=== PATIENT | female | born 1990 | race Two or more races ===

== ENCOUNTER 2016-11-14 10:45 | Emergency (ER) | payer MEDICAID ==
[~2016-11-14] VITALS: Ht 144.8 cm; Wt 72.6 kg
[~2016-11-14 10:45] MED LIST: ACET500T68 PO; CLOT12CR2 TP; HYDR-971 PO; LIDO30CR TP; ONDA4TAB10 SL; PREN1TAB58 PO
[2016-11-14] MEDS ORDERED: IV NORMAL SALINE 1,000ML 1,000 ML IV SCH (10:57)
--- NOTE | 2016-11-14 11:07 | PHYS DOC ---
General Chief Complaint: allergic reaction Stated Complaint: allergic reaction Time Seen by MD: 10:51 Source: patient Exam Limitations: no limitations Problems: History of Present Illness Initial Comments Patient is a 26-year-old female who comes to the emergency department complaining of an allergic reaction. Patient states that she tried a new body lotion yesterday and developed an itchy rash. She thought symptoms would resolve on their own however today her rash is worse and she is now stating she feels slightly hoarse. She denies cough or dyspnea on exertion or actual shortness of breath and has not noted any facial or throat swelling. No pre-arrival treatment she is normally healthy and denies possibility of . Timing/Duration: 24 hours, getting worse Severity: moderate Modifying Factors: improves with cold therapy Associated Symptoms: rash, other Allergies: Coded Allergies: No Known Drug Allergies (Unverified , 11/14/16) Past Medical History Medical History: no pertinent history Surgical History: noncontributory Social History Smoker: non-smoker Alcohol: none Drugs: none Review of Systems Constitutional: denies chills, denies diaphoresis, denies fever EENTM: see HPI, denies eye pain, denies blurred vision, denies ear pain, denies nose pain Respiratory: see HPI Cardiovascular: denies chest pain, denies palpitations, denies syncope Gastrointestinal: denies abdominal pain, denies diarrhea, denies nausea, denies vomiting Genitourinary: denies dysuria, denies frequency, denies hematuria Musculoskeletal: denies back pain, denies joint swelling, denies neck pain Skin: see HPI Psychiatric/Neurological: denies headache, denies numbness, denies paresthesia , denies weakness Physical Exam General Appearance: no apparent distress Eyes: bilateral eye normal inspection, bilateral eye PERRL, bilateral eye EOMI Ear, Nose, Throat: hearing grossly normal, normal ENT inspection, normal pharynx, other (birthmark/port wine stain right cheek) Neck: non-tender, supple Respiratory: normal breath sounds, no respiratory distress Cardiovascular: normal peripheral pulses, regular rate, rhythm Back: no CVA tenderness, no vertebral tenderness Extremities: normal range of motion, non-tender 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 1206: I rechecked the patient she states she is feeling much better after medication. She is somewhat tired from the Benadryl but no longer itching in her respiratory status has returned to baseline normal. She feels she is ready for discharge I discussed the discharge plan including prescription for prednisone as well as [id number] Benadryl and Pepcid. Patient expressed agreement and understanding of the treatment plan, she will discontinue the new product and follow-up with her doctor for allergy testing. Departure Time of Disposition: 12:07 Disposition: HOME, SELF-CARE Diagnosis: allergic reaction Condition: IMPROVED Patient Instructions: Allergy Skin Testing Additional Instructions: Rest, no strenuous activity today. Remain in a cool temperature environment, exertion or hot temperatures well cause your symptoms to worsen. Discontinue the new product you feel is responsible for this rash. [id number] Benadryl and Pepcid dosing per package instructions, take for the next 5 days while taking prednisone. Prescription: Prednisone Follow-up with your doctor Friday for recheck and to discuss skin testing for allergies. Return to the ED with new or changing symptoms. VIOLET SINGLETON DO Nov 14, 2016 11:07
[2016-11-14 11:30] VITALS: BP 125/70
[2016-11-14] MEDS ORDERED: diphenhydrAMINE 50 MG/ML VIAL IV ONE (11:30)
[2016-11-14] MEDS ORDERED: methylPREDNISolone SOD SUCC PF 125 MG/2 ML VIAL. IV ONE (11:30)
[2016-11-14] MEDS ORDERED: FAMOTIDINE 20 MG/2 ML VIAL IVP ONE (11:30)
== END 2016-11-14 12:17 | disposition home or self-care (01) ==
LOC: ER 10:45 → MERGE 10:45 → ER 12:17
DX: T78.49XA Other allergy, initial encounter (principal); X58.XXXA Exposure to other specified factors, initial encounter
CPT/HCPCS: 96361; 96374; 96375; 99285; J1200; J2930; S0028; J7030

== ENCOUNTER 2017-05-01 01:00 | Emergency (ER) | payer SELFPAY ==
[~2017-05-01] VITALS: Ht 127 cm; Wt 74.2 kg
[2017-05-01 01:42] LABS: BASO # 0.1 x10^3/uL (0.0-0.2); BASO % 1 % (0-3); EOS # 0.4 x10^3/uL (0.0-0.7); EOS % 3 % (0-3); HEMOGLOBIN 11.4 g/dL (12.0-15.5); LYMPH # 4.9 x10^3/uL (1.0-4.8); LYMPH % 34 % (24-48); MEAN CORPUSCULAR HEMOGLOBIN 26 pg (25-35); MEAN CORPUSCULAR HGB CONC 33 g/dL (31-37); MEAN CORPUSCULAR VOLUME 79 fL (79-100); MONO # 1.2 x10^3/uL (0.0-1.1); MONO % 9 % (0-9); NEUT # 7.7 x10^3uL (1.8-7.7); NEUT % 54 % (31-73); PLATELET COUNT 537 x10^3/uL (140-400); RED BLOOD COUNT 4.32 x10^6/uL (3.50-5.40); RED CELL DISTRIBUTION WIDTH 15.9 % (11.5-14.5); WHITE BLOOD COUNT 14.3 x10^3/uL (4.0-11.0)
[2017-05-01 01:47] LABS: CLARITY,URINE CLEAR; COLOR,URINE YELLOW
[2017-05-01 01:48] LABS: BACTERIA,URINE FEW /HPF (0-FEW); BILIRUBIN,URINE NEG (NEG); GLUCOSE,URINE NEG (NEG); NITRITE,URINE NEG (NEG); RBC,URINE OCC /HPF (0-2); SQUAMOUS EPITHELIAL CELL,UR MOD /LPF; UROBILINOGEN,URINE 0.2 mg/dL (0.2 mg/dL)
[2017-05-01 01:55] LABS: ALBUMIN 3.2 g/dL (3.4-5.0); ALBUMIN/GLOBULIN RATIO 0.8 (1.0-1.7); CALCIUM 8.5 mg/dL (8.5-10.1); CREATININE 0.8 mg/dL (0.6-1.0); DIRECT BILIRUBIN 0.1 mg/dL (0.0-0.2); GFR 88.1; POTASSIUM 3.2 mmol/L (3.5-5.1); TOTAL BILIRUBIN 0.2 mg/dL (0.2-1.0)
[2017-05-01] MEDS ORDERED: ONDANSETRON PF 4 MG/2 ML VIAL. IV ONE (02:15)
[2017-05-01] MEDS ORDERED: IOHEXOL 300 MG/ML 75 ML VIAL. IV ONE (02:30)
[2017-05-01] MEDS ORDERED: CONTRAST GIVEN MC PRN (02:30)
--- NOTE | 2017-05-01 03:08 | RAD ---
CT scan of the abdomen and pelvis with contrast 05/01/2017 CLINICAL HISTORY: Right upper quadrant abdominal pain. TECHNIQUE: After the intravenous administration of 75 cc of Omnipaque 300, contiguous, 5 mm axial sections were obtained through the abdomen and pelvis. One or more of the following individualized dose reduction techniques were utilized for this study: 1. Automated exposure control. 2. Adjustment of the mA and/or kV according to patient size. 3. Use of iterative reconstruction technique. FINDINGS: Images through the lung bases demonstrate minimal dependent subsegmental atelectasis bilaterally. The liver, spleen, pancreas, adrenal glands and kidneys are within normal limits. The abdominal aorta tapers normally. The gallbladder is well-distended. No free fluid or free air is seen within the abdomen. There is no evidence of bowel obstruction. Air and stool is seen throughout the colon. The appendix is well-visualized and is within normal limits. Images through the pelvis demonstrate the urinary bladder distended with urine. No adnexal mass is seen. No free fluid is noted. Minimal S-shaped curvature of the thoracolumbar spine is seen. IMPRESSION: No acute abnormality is seen. Electronically signed by: Zenon bOregon MD (05/01/2017 3:06 AM) [facility]
--- NOTE | 2017-05-01 03:18 | PHYS DOC ---
Past History Past Medical History: Other Past Surgical History: Alcohol Use: None Drug Use: None Adult General Chief Complaint Chief Complaint: ABDOMINAL PAIN HPI HPI Patient is a 26-year-old female presenting to the emergency department for evaluation of upper abdominal pain worse in the right upper quadrant. Symptoms started approximately 4-5 hours prior to arrival and is associated with nonbloody nonbilious emesis. Patient denies any fevers chills diarrhea constipation dysuria hematuria or abnormal bleeding or discharge. She has had a but denies any other abdominal surgeries. She is in no obvious distress with normal vital signs. Review of Systems Review of Systems Constitutional: Denies fever or chills [] Respiratory: Denies cough or shortness of breath [] Cardiovascular: No additional information not addressed in HPI [] GI: + abdominal pain, nausea, vomiting. No bloody stools or diarrhea [] : Denies dysuria or hematuria [] Musculoskeletal: Denies back pain or joint pain [] Neurologic: Denies headache, focal weakness or sensory changes [] All other systems were reviewed and found to be within normal limits, except as documented in this note. Current Medications Current Medications Current Medications Medications (Trade) Dose Ordered Sig/Mino Start Time Stop Time Status Last Admin Dose Admin Fentanyl Citrate (Fentanyl 2ml Vial) 50 mcg 1X ONCE 05/01/17 02:15 05/01/17 02:28 DC 05/01/17 02:18 50 MCG Info (Do NOT chart on this entry -- for MONITORING) 1 each PRN DAILY PRN 05/01/17 02:30 05/03/17 02:29 Iohexol (Omnipaque 300 Mg/ml) 75 ml 1X ONCE 05/01/17 02:30 05/01/17 02:31 DC 05/01/17 02:34 75 ML Ondansetron HCl (Zofran) 8 mg 1X ONCE 05/01/17 02:15 05/01/17 02:28 DC 05/01/17 02:18 8 MG Allergies Allergies Allergies Coded Allergies Type Severity Reaction Last Updated Verified No Known Drug Allergies 05/01/17 No Physical Exam Physical Exam Constitutional: Well developed, well nourished, no acute distress, non-toxic appearance. [] Cardiovascular:Heart rate regular rhythm, no murmur [] Lungs & Thorax: Bilateral breath sounds clear to auscultation [] Abdomen: Bowel sounds normal, soft, positive right upper quadrant tenderness, no rebound or guarding, no masses, no pulsatile masses. [] Skin: Warm, dry, no erythema, no rash. [] Back: No tenderness, no CVA tenderness. [] Extremities: No tenderness, no cyanosis, no clubbing, ROM intact, no edema. [] Neurologic: Alert and oriented X 3, normal motor function, normal sensory function, no focal deficits noted. [] Current Patient Data Vital Signs Vital Signs Date Time Temp Pulse Resp B/P (MAP) Pulse Ox O2 Delivery O2 Flow Rate FiO2 05/01/17 02:18 20 98 Room Air 05/01/17 01:05 98.3 85 Lab Results Laboratory Tests Test 05/01/17 01:15 05/01/17 02:40 White Blood Count 14.3 x10^3/uL (4.0-11.0) H Red Blood Count 4.32 x10^6/uL (3.50-5.40) Hemoglobin 11.4 g/dL (12.0-15.5) L Hematocrit 34.0 % (36.0-47.0) L Mean Corpuscular Volume 79 fL (79-100) Mean Corpuscular Hemoglobin 26 pg (25-35) Mean Corpuscular Hemoglobin Concent 33 g/dL (31-37) Red Cell Distribution Width 15.9 % (11.5-14.5) H Platelet Count 537 x10^3/uL (140-400) H Neutrophils (%) (Auto) 54 % (31-73) Lymphocytes (%) (Auto) 34 % (24-48) Monocytes (%) (Auto) 9 % (0-9) Eosinophils (%) (Auto) 3 % (0-3) Basophils (%) (Auto) 1 % (0-3) Neutrophils # (Auto) 7.7 x10^3uL (1.8-7.7) Lymphocytes # (Auto) 4.9 x10^3/uL (1.0-4.8) H Monocytes # (Auto) 1.2 x10^3/uL (0.0-1.1) H Eosinophils # (Auto) 0.4 x10^3/uL (0.0-0.7) Basophils # (Auto) 0.1 x10^3/uL (0.0-0.2) Urine Collection Type Unknown Urine Color Yellow Urine Clarity Clear Urine pH 7.0 Urine Specific [place] 1.020 Urine Protein Neg (NEG-TRACE) Urine Glucose (UA) Neg mg/dL (NEG) Urine Ketones (Stick) Trace mg/dL (NEG) Urine Blood Large (NEG) Urine Nitrite Neg (NEG) Urine Bilirubin Neg (NEG) Urine Urobilinogen Dipstick 0.2 mg/dL (0.2 mg/dL) Urine Leukocyte Esterase Neg (NEG) Urine RBC Occ /HPF (0-2) Urine WBC 1-4 /HPF (0-4) Urine Squamous Epithelial Cells Mod /LPF Urine Bacteria Few /HPF (0-FEW) Sodium Level 140 mmol/L (136-145) Potassium Level 3.2 mmol/L (3.5-5.1) L Chloride Level 105 mmol/L (98-107) Carbon Dioxide Level 22 mmol/L (21-32) Anion Gap 13 (6-14) Blood Urea Nitrogen 11 mg/dL (7-20) Creatinine 0.8 mg/dL (0.6-1.0) Estimated GFR (Cockcroft-Gault) 88.1 BUN/Creatinine Ratio 14 (6-20) Glucose Level 140 mg/dL (70-99) H Calcium Level 8.5 mg/dL (8.5-10.1) Total Bilirubin 0.2 mg/dL (0.2-1.0) Direct Bilirubin 0.1 mg/dL (0.0-0.2) Aspartate Amino Transferase (AST) 14 U/L (15-37) L Alanine Aminotransferase (ALT) 28 U/L (14-59) Alkaline Phosphatase 85 U/L (46-116) Total Protein 7.0 g/dL (6.4-8.2) Albumin 3.2 g/dL (3.4-5.0) L Albumin/Globulin Ratio 0.8 (1.0-1.7) L Lipase 107 U/L (73-393) POC Urine HCG, Qualitative hcg negative (Negative) EKG EKG [] Radiology/Procedures Radiology/Procedures CT scan of the abdomen and pelvis with contrast 05/01/2017 CLINICAL HISTORY: Right upper quadrant abdominal pain. TECHNIQUE: After the intravenous administration of 75 cc of Omnipaque 300, contiguous, 5 mm axial sections were obtained through the abdomen and pelvis. One or more of the following individualized dose reduction techniques were utilized for this study: 1. Automated exposure control. 2. Adjustment of the mA and/or kV according to patient size. 3. Use of iterative reconstruction technique. FINDINGS: Images through the lung bases demonstrate minimal dependent subsegmental atelectasis bilaterally. The liver, spleen, pancreas, adrenal glands and kidneys are within normal limits. The abdominal aorta tapers normally. The gallbladder is well-distended. No free fluid or free air is seen within the abdomen. There is no evidence of bowel obstruction. Air and stool is seen throughout the colon. The appendix is well-visualized and is within normal limits. Images through the pelvis demonstrate the urinary bladder distended with urine. No adnexal mass is seen. No free fluid is noted. Minimal S-shaped curvature of the thoracolumbar spine is seen. IMPRESSION: No acute abnormality is seen. Electronically signed by: Zenon Perez MD (05/01/2017 3:06 AM) [facility] DICTATED AND SIGNED BY: ZENON PEREZ MD DATE: 05/01/17300 Course & Med Decision Making Course & Med Decision Making Patient certainly has signs and symptoms of gallbladder pathology however her liver enzymes are normal and her CT showed no obvious signs of cholecystitis and had no gallbladder stones either. She does have leukocytosis but this has been a nonspecific finding and it has been present on every single one of her labs from the past 3 years. Patient has no fevers and her repeat abdominal exam is benign. She is able to tolerate water by mouth with no difficulty and she is asking to go home. I told patient to follow with a primary care provider and a general surgeon within the next 1-2 days to go over her symptoms and see if any further testing such as a HIDA scan may be helpful. Patient aware and agreeable with plan for discharge and verbalized understanding of the need for short-term follow-up and strict ED return precautions discussed including worsening pain fevers vomiting or other general concerns. Dragon Disclaimer Dragon Disclaimer This electronic medical record was generated, in whole or in part, using a voice recognition dictation system. Departure Departure: Impression: Primary Impression: Abdominal pain Additional Impressions: Nausea & vomiting Leukocytosis Disposition: 01 HOME, SELF-CARE Condition: STABLE Referrals: GERALDINE SEGOVIA MD Patient Instructions: Abdominal Pain (Nonspecific) Scripts Ondansetron (ZOFRAN ODT) 4 Mg Tab.rapdis 1 TAB SL Q8HRS, #10 TAB Prov: JOE PALACIOS DO 05/01/17 Hydrocodone Bit/Acetaminophen (NORCO 5-325 TABLET) 1 Each Tablet 1 TAB PO PRN Q6HRS Y for PAIN, #15 TAB 0 Refills Prov: JOE PALACIOS DO 05/01/17 Problem Qualifiers Primary Impression: Abdominal pain Abdominal location: right upper quadrant Qualified Codes: R10.11 - Right upper quadrant pain JOE PALACIOS DO May 01, 2017 03:18
[2017-05-01] MEDS ORDERED: HYDR-971 PO (03:49)
[2017-05-01] MEDS ORDERED: ONDA4TAB10 SL (03:49)
[2017-05-01 04:00] VITALS: BP 91/49
== END 2017-05-01 04:00 | disposition home or self-care (01) ==
LOC: ER 01:00
DX: R10.11 Right upper quadrant pain (principal); R11.2 Nausea with vomiting, unspecified; D72.829 Elevated white blood cell count, unspecified; Z98.890 Other specified postprocedural states
CPT/HCPCS: 36415; 74177; 80053; 80076; 81001; 81025; 83690; 85025; 96374; 96375; 99285; J2405; J3010; Q9967

== ENCOUNTER 2017-11-24 11:10 | Emergency (ER) | payer OTHER ==
[~2017-11-24] VITALS: Ht 127 cm; Wt 74.2 kg
[2017-11-24 11:21] VITALS: BP 145/79
[2017-11-24] MEDS ORDERED: IBUP800T19 PO (11:43)
[2017-11-24] MEDS ORDERED: TRAM50TA PO (11:43)
--- NOTE | 2017-11-24 12:28 | ED.ADGEN ---
Past History Past Medical History: Other Past Surgical History: Alcohol Use: None Drug Use: None Adult General HPI HPI Patient is a 27 year old female who presents with rib pain. Patient has been having pain over the anterior portion of her rib cage bilaterally over the last 48 hours. She states the pain is worse when she takes a deep breath and with some movements. She awoke with the pain and did not have an accident or any other known inciting event. Pain is nonradiating. It is present over the midportion of the anterior ribs bilaterally and beneath the breasts and over the lower portion of the sternum. She is not been short of breath. She has not had chest pain. She has not had any palpitations. No recent travel. No estrogen use. No significant family history of coronary events. Review of Systems Review of Systems Constitutional: Denies fever or chills Eyes: Denies change in visual acuity, redness, or eye pain HENT: Denies nasal congestion or sore throat Respiratory: Denies cough or shortness of breath Cardiovascular: No additional information not addressed in HPI GI: Denies abdominal pain, nausea, vomiting, bloody stools or diarrhea : Denies dysuria or hematuria Musculoskeletal: Denies back pain or joint pain Integument: Denies rash or skin lesions Neurologic: Denies headache, focal weakness or sensory changes All other systems were reviewed and found to be within normal limits, except as documented in this note. Allergies Allergies Allergies Coded Allergies Type Severity Reaction Last Updated Verified No Known Drug Allergies 05/01/17 No Physical Exam Physical Exam Constitutional: Well developed, well nourished, no acute distress, non-toxic appearance HENT: Normocephalic, atraumatic, bilateral external ears normal, oropharynx moist, no oral exudates, nose normal Eyes: PERRLA, EOMI, conjunctiva normal, no discharge Neck: Normal range of motion, no tenderness, supple Cardiovascular:Heart rate regular rhythm, no murmur Lungs & Thorax: Bilateral breath sounds clear to auscultation, patient has point tenderness over the lower portion of her sternum as well as the anterior portion of the rib cage just beneath the breasts bilaterally. There is due reproduce her presenting complaint significantly Abdomen: Bowel sounds normal, soft, no tenderness, no masses, no pulsatile masses Skin: Warm, dry, no erythema, no rash. Back: No tenderness Extremities: No edema Neurologic: Alert and oriented X 3 Psychologic: Affect normal Current Patient Data Vital Signs Vital Signs Date Time Temp Pulse Resp B/P (MAP) Pulse Ox O2 Delivery O2 Flow Rate FiO2 11/24/17 11:21 98.6 67 18 100 Room Air EKG EKG [] Radiology/Procedures Radiology/Procedures [] Course & Med Decision Making Course & Med Decision Making Pertinent Labs and Imaging studies reviewed. (See chart for details) Patient is seen and examined in the ER. Her symptoms are very musculoskeletal in nature. She has no risk factors for coronary disease or palmar embolus. She has good lung sounds in all lamb with good air movement. Plan is for discharge home. She is given a prescription for ibuprofen as her baseline medication and some tramadol for more severe symptoms. Opiate precautions are discussed. All of her questions are answered prior to discharge home. Patient is agreeable to the plan of care. Final Impression Final Impression Musculoskeletal Pain Guerda Disclaimer Dragon Disclaimer This electronic medical record was generated, in whole or in part, using a voice recognition dictation system. MED SIMMS DO Nov 24, 2017 12:28
== END 2017-11-24 11:46 | disposition home or self-care (01) ==
LOC: ER 11:10
DX: R07.81 Pleurodynia (principal)
CPT/HCPCS: 99283

== ENCOUNTER 2019-06-07 16:04 | Emergency (ER) | payer OTHER ==
[~2019-06-07] VITALS: Ht 127 cm; Wt 71.2 kg
[~2019-06-07 16:04] MED LIST changes: +HYDR-3165 PO; -HYDR-971 PO; +IBUP800T19 PO; +TRAM50TA PO
--- NOTE | 2019-06-07 16:32 | PHYS DOC ---
Past History Past Medical History: Other (ZENAIDA BECKER DO) Past Medical History: Anemia (MATHEUS SANTANA MD) Past Surgical History: (ZENAIDA BECKER DO) Alcohol Use: None Drug Use: None (ZENAIDA BECKER DO) Adult General Chief Complaint Chief Complaint: FEVER HPI HPI 28 showed female presents with fever and right flank pain. She started have fever and cramping last night. She took Tylenol and ibuprofen and TheraFlu [id number]-[id number] medications today. She still has a fever. Her right-sided cramping has gotten worse. It is in her right flank down to her buttocks. She feels like maybe a little bit harder to urinate. She denies urinary frequency. She's never had a kidney stone in the past. She has no other complaints at this time. (ZENAIDA BECKER DO) Review of Systems Review of Systems Constitutional: Fever[] Eyes: Denies change in visual acuity, redness, or eye pain [] HENT: Denies nasal congestion or sore throat [] Respiratory: Denies cough or shortness of breath [] Cardiovascular: No additional information not addressed in HPI [] GI: Denies abdominal pain, nausea, vomiting, bloody stools or diarrhea [] : Dysuria[] Musculoskeletal: Flank pain[] Integument: Denies rash or skin lesions [] Neurologic: Denies headache, focal weakness or sensory changes [] Endocrine: Denies polyuria or polydipsia [] All other systems were reviewed and found to be within normal limits, except as documented in this note. (ZENAIDA BECKER DO) Allergies Allergies Allergies Coded Allergies Type Severity Reaction Last Updated Verified No Known Drug Allergies 05/01/17 No (ZENAIDA BECKER DO) Physical Exam Physical Exam Constitutional: Well developed, obese, well nourished, no acute distress, non- toxic appearance. [] HENT: Normocephalic, atraumatic, bilateral external ears normal, oropharynx moist, no oral exudates, nose normal. [] Eyes: PERRLA, EOMI, conjunctiva normal, no discharge. [] Neck: Normal range of motion, no tenderness, supple, no stridor. [] Cardiovascular:Heart rate regular rhythm, no murmur [] Lungs & Thorax: Bilateral breath sounds clear to auscultation [] Abdomen: Bowel sounds normal, soft, no tenderness, no masses, no pulsatile masses. [] Skin: Warm, dry, no erythema, no rash. [] Back: No tenderness, right-sided CVA tenderness. [] Extremities: No tenderness, no cyanosis, no clubbing, ROM intact, no edema. [] Neurologic: Alert and oriented X 3, normal motor function, normal sensory function, no focal deficits noted. [] Psychologic: Affect normal, judgement normal, mood normal. [] (ZENAIDA BECKER DO) EKG EKG [] (ZENAIDA BECKER DO) Radiology/Procedures Radiology/Procedures [] (ZENAIDA BECKER DO) Radiology/Procedures IMAGING REPORT Signed PATIENT: IBIS CHANACCOUNT: [id number] : 1990 LOCATION: ER AGE: 28 SEX: F EXAM STATUS: REG ER ORD. PHYSICIAN: ZENAIDA BECKER DO REASON: Severe right abdomen and flank pain PROCEDURE: CT ABDOMEN PELVIS WO CONTRAST Exam: CT abdomen and pelvis without contrast INDICATION: Severe right abdomen and flank pain TECHNIQUE: Sequential axial images through the abdomen and pelvis obtained without IV contrast. Sagittal and coronal reformatted images were reconstructed from the axial data and reviewed. Comparisons: 05/01/2017 FINDINGS: Heart size is normal. No pericardial effusion. Visualized lung bases are clear. No pleural effusion. Evaluation of the solid organs is limited secondary to noncontrast technique. Liver, spleen, pancreas, gallbladder and adrenals are unremarkable. No perinephric inflammation or hydronephrosis. No ureteral calculi are identified. Several nonobstructing 2 to 3 mm renal calculi are noted bilaterally. Bladder is decompressed not well evaluated. Uterus is not enlarged. No abnormal adnexal mass. Large and small bowel are unremarkable. Appendix is normal. No free intra-abdominal air or fluid. Abdominal aorta has a normal course and caliber. No enlarged intra-abdominal lymph nodes are identified. No suspicious osseous lesions or acute fractures. IMPRESSION: Bilateral nonobstructing renal calculi. No ureteral calculi or evidence for obstructive uropathy. Exposure: One or more of the following in the visualized dose reduction techniques were utilized for this examination: 1. Automated exposure control 2. Adjustment of the MA and/or KV according to patient size 3. Use of iterative of reconstructive technique Electronically signed by: Zoe Han MD (06/07/2019 5:32 PM) [facility] DICTATED AND SIGNED BY: ZOE HAN MD DATE: 06/07/191731 CC: ZENAIDA BECKER DO; PCP,NO ~ (MATHEUS SANTANA MD) Course & Med Decision Making Course & Med Decision Making Pertinent Labs and Imaging studies reviewed. (See chart for details) Patient's workup is pending. I'm signing her out to Dr. Santana at 1700. [] (ZENAIDA BECKER DO) Course & Med Decision Making Patient tolerance symptoms improved at time of discharge. She push fluids. Zofran 8 mg up 4 times a day for active nausea and vomiting. Take Vicoprofen for marked discomfort if discomfort is not covered by use of Tylenol and ibuprofen. Must have re-exam if no improvement. Follow-up primary care. Take Keflex 500 mg 3 times a day. Follow-up pending cultures. Overall presentations suggestive of right renal colic-but no obvious obstruction noted on CT. May be contamination I viral presentation. But we will treat with antibiotics to cover atypical presentation. Pt. to followup with primary care and follow up pending cultures. Return if any concerns. Pain and discomfort relieved at discharge. Pt pain could still be elicited with right flank percussion, Impression: 1. Abdomen Pain 2. Renal Colic Rt. 3. Leukocytosis 18.1 4. Anemia HGB= 11.,7 (MATHEUS SANTANA MD) Dragon Disclaimer Dragon Disclaimer This electronic medical record was generated, in whole or in part, using a voice recognition dictation system. (ZENAIDA BECKER DO) Departure Departure: Disposition: HOME/RESIDENCE PRIOR TO ADM Condition: STABLE Referrals: PCP,NO (PCP) Scripts Ondansetron Hcl (ZOFRAN) 8 Mg Tablet 8 MG PO QIDPRN PRN for nv, #30 BOTTLE Prov: MATHEUS SANTANA MD 06/07/19 Hydrocodone/Ibuprofen (HYDROCODONE-IBUPROFEN 7.5-200 ) 1 Each Tablet 1 TAB PO PRN Q6HRS PRN for PAIN, #30 TAB 0 Refills Prov: MATHEUS SANTANA MD 06/07/19 Cephalexin (KEFLEX) 500 Mg Capsule 500 MG PO TID for renal colic- infection for 10 Days, BOT Prov: MATHEUS SANTANA MD 06/07/19 Guerda Disclaimer This chart was dictated in whole or in part using Voice Recognition software in a busy, high-work load, and often noisy Emergency Department environment. It may contain unintended and wholly unrecognized errors or omissions. (MATHEUS SANTANA MD) Dragon Disclaimer This chart was dictated in whole or in part using Voice Recognition software in a busy, high-work load, and often noisy Emergency Department environment. It may contain unintended and wholly unrecognized errors or omissions. (MATHEUS SANTANA MD) ZENAIDA BECKER DO Jun 07, 2019 16:32 MATHEUS SANTANA MD Jun 07, 2019 22:19
[2019-06-07] MEDS ORDERED: ACETAMINOPHEN 325 MG TABLET PO ONE (16:45)
[2019-06-07 16:52] LABS: BASO % 0 % (0-3); EOS % 0 % (0-3); HEMATOCRIT 36.9 % (36.0-47.0); HEMOGLOBIN 11.7 g/dL (12.0-15.5); LYMPH # 0.5 x10^3/uL (1.0-4.8); LYMPH % 3 % (24-48); MEAN CORPUSCULAR HEMOGLOBIN 25 pg (25-35); MEAN CORPUSCULAR HGB CONC 32 g/dL (31-37); MEAN CORPUSCULAR VOLUME 80 fL (79-100); MONO # 0.7 x10^3/uL (0.0-1.1); MONO % 4 % (0-9); NEUT # 16.8 x10^3uL (1.8-7.7); NEUT % 93 % (31-73); PLATELET COUNT 419 x10^3/uL (140-400); RED BLOOD COUNT 4.64 x10^6/uL (3.50-5.40); RED CELL DISTRIBUTION WIDTH 15.7 % (11.5-14.5); WHITE BLOOD COUNT 18.1 x10^3/uL (4.0-11.0)
[2019-06-07 17:01] LABS: CALCIUM 8.5 mg/dL (8.5-10.1); CREATININE 0.7 mg/dL (0.6-1.0); GFR 101.1; POTASSIUM 3.4 mmol/L (3.5-5.1)
[2019-06-07 17:02] LABS: BILIRUBIN,URINE NEG (NEG); CLARITY,URINE HAZY; COLOR,URINE YELLOW; GLUCOSE,URINE NEG (NEG); NITRITE,URINE NEG (NEG)
[2019-06-07 17:03] LABS: AMORPHOUS SEDIMENT,UR PRESENT /HPF; BACTERIA,URINE FEW /HPF (0-FEW); SQUAMOUS EPITHELIAL CELL,UR MANY /LPF; WBC,URINE OCC /HPF (0-4)
[2019-06-07 17:06] LABS: ALBUMIN 3.4 g/dL (3.4-5.0); ALBUMIN/GLOBULIN RATIO 0.8 (1.0-1.7); TOTAL BILIRUBIN 0.7 mg/dL (0.2-1.0); TOTAL PROTEIN 7.9 g/dL (6.4-8.2)
[2019-06-07 17:08] LABS: INFLUENZA A PATIENT NEGATIVE (NEGATIVE); INFLUENZA B PATIENT NEGATIVE (NEGATIVE)
[2019-06-07 17:17] LABS: % ATYL 1 % (0-0); % BANDS 3 % (0-9); % LYMPHS 3 % (24-48); % MONOS 1 % (0-10); % SEGS 92 % (35-66)
[2019-06-07 17:18] LABS: HYPOCHROMIA SLIGHT; PLT ESTIMATE INCREASED (ADEQUATE); TOXIC GRANULATION SLIGHT; TOXIC VACUOLATION SLIGHT
--- NOTE | 2019-06-07 17:35 | RAD ---
Exam: CT abdomen and pelvis without contrast INDICATION: Severe right abdomen and flank pain TECHNIQUE: Sequential axial images through the abdomen and pelvis obtained without IV contrast. Sagittal and coronal reformatted images were reconstructed from the axial data and reviewed. Comparisons: 05/01/2017 FINDINGS: Heart size is normal. No pericardial effusion. Visualized lung bases are clear. No pleural effusion. Evaluation of the solid organs is limited secondary to noncontrast technique. Liver, spleen, pancreas, gallbladder and adrenals are unremarkable. No perinephric inflammation or hydronephrosis. No ureteral calculi are identified. Several nonobstructing 2 to 3 mm renal calculi are noted bilaterally. Bladder is decompressed not well evaluated. Uterus is not enlarged. No abnormal adnexal mass. Large and small bowel are unremarkable. Appendix is normal. No free intra-abdominal air or fluid. Abdominal aorta has a normal course and caliber. No enlarged intra-abdominal lymph nodes are identified. No suspicious osseous lesions or acute fractures. IMPRESSION: Bilateral nonobstructing renal calculi. No ureteral calculi or evidence for obstructive uropathy. Exposure: One or more of the following in the visualized dose reduction techniques were utilized for this examination: 1. Automated exposure control 2. Adjustment of the MA and/or KV according to patient size 3. Use of iterative of reconstructive technique Electronically signed by: Zoe Farley MD (06/07/2019 5:32 PM) [facility]
[2019-06-07] MEDS ORDERED: IV NORMAL SALINE 50ML 50 ML ONE (18:06)
[2019-06-07] MEDS ORDERED: cefTRIAXone SODIUM 1 GM VIAL ONE (18:07)
[2019-06-07] MEDS ORDERED: KETOROLAC 30 MG/ML VIAL. IVP ONE (18:15)
[2019-06-07] MEDS ORDERED: ONDANSETRON PF 4 MG/2 ML VIAL. IVP ONE (18:15)
[2019-06-07] MEDS ORDERED: ONDA8TAB9 PO (18:16)
[2019-06-07] MEDS ORDERED: HYDR-1179 PO (18:16)
[2019-06-07] MEDS ORDERED: CEPH-264 PO (18:16)
[2019-06-07 18:44] VITALS: BP 106/67
== END 2019-06-07 19:00 | disposition home or self-care (01) ==
LOC: ER 16:04
DX: N23 Unspecified renal colic (principal); D64.9 Anemia, unspecified; D72.829 Elevated white blood cell count, unspecified; Z98.890 Other specified postprocedural states
CPT/HCPCS: 36415; 74176; 80053; 81001; 81025; 85007; 85025; 87040; 87804; 96365; 96375; 99285; J0696; J1885; J2405

== ENCOUNTER 2019-10-24 06:21 | Emergency (ER) | payer OTHER ==
[~2019-10-24] VITALS: Ht 127 cm; Wt 80.9 kg
[~2019-10-24 06:21] MED LIST changes: +CEPH-264 PO; +HYDR-1179 PO; +ONDA8TAB9 PO
[2019-10-24 06:25] VITALS: BP 138/74
--- NOTE | 2019-10-24 06:48 | PHYS DOC ---
Past History Past Medical History: Anemia, Other Additional Past Medical Histor: inflamed gallbladder Past Surgical History: Alcohol Use: None Drug Use: None General Adult EDM: Chief Complaint: ABDOMINAL PAIN HPI: HPI: Patient is a 29-year-old female who presents with complaint of right upper quadrant abdominal pain that radiates into her back. She states that pain started at about 4:00 this morning. She reports nausea and vomiting. She has had no diarrhea. Patient rates pain at a 10 out of 10. She states that she had similar symptoms about a year ago and was told that she had an inflamed gallbladder. She states that she did not see a surgeon and was not told to see a surgeon. [] Review of Systems: Review of Systems: Constitutional: Denies fever or chills Respiratory: Denies cough or shortness of breath Cardiovascular: Denies chest pain or edema GI: Complains of abdominal pain with nausea and vomiting. Denies diarrhea Integument: Denies rash Neurologic: Denies headache, focal weakness or sensory changes A full 10 point review of systems has been reviewed and is otherwise negative Heart Score: Risk Factors: Risk Factors: DM, Current or recent (<one month) smoker, HTN, HLP, family history of CAD, obesity. Risk Scores: Score 0 - 3: 2.5% MACE over next 6 weeks - Discharge Home Score 4 - 6: 20.3% MACE over next 6 weeks - Admit for Clinical Observation Score 7 - 10: 72.7% MACE over next 6 weeks - Early Invasive Strategies Allergies: Allergies: Allergies Coded Allergies Type Severity Reaction Last Updated Verified No Known Drug Allergies 05/01/17 No Physical Exam: PE: Constitutional: Well developed, well nourished, no acute distress, non-toxic appearance. [] HENT: Normocephalic, atraumatic, bilateral external ears normal, oropharynx moist, no oral exudates, nose normal. [] Eyes: PERRLA, EOMI, conjunctiva normal, no discharge. [] Neck: Normal range of motion, no tenderness, supple, no stridor. [] Cardiovascular: Regular rate and rhythm [] Lungs & Thorax: Bilateral breath sounds clear to auscultation [] Abdomen: Bowel sounds normal, soft, with right upper quadrant tenderness. [] Skin: Warm, dry, no erythema, no rash. [] Extremities: No tenderness, no cyanosis, no clubbing, ROM intact, no edema. [] Neurologic: Alert and oriented X 3, no focal deficits noted. [] Current Patient Data: Vital Signs: Vital Signs Date Time Temp Pulse Resp B/P (MAP) Pulse Ox O2 Delivery O2 Flow Rate FiO2 10/24/19 06:25 97.6 EKG: EKG: [] Radiology/Procedures: Radiology/Procedures: [] Impressions: PROCEDURE: ABDOMEN LTD Limited abdomen ultrasound HISTORY: Right upper quadrant abdominal pain. COMPARISON: CT abdomen and pelvis June 07, 2019. FINDINGS: Imaged pancreas, upper abdominal aorta and upper abdominal IVC are normal. The pancreas distal tail and lower abdominal segments of the vessels are obscured by bowel gas shadowing. Normal liver echogenicity. No liver mass or nodularity documented. Rib shadowing may limit visualization of the far upper segments of the liver beneath the diaphragm. Hepatopedal portal vein blood flow is present. No gallstones or inflammatory change of the gallbladder. No biliary ductal dilation the common bile duct diameter is 3.5 mm. Right renal length 10.5 cm. No right renal mass, calculus or hydronephrosis documented. Overlying bowel gas shadowing limits visualization of a portion of the right renal lower pole. Spleen and left kidney were not evaluated. IMPRESSION: Normal exam. Electronically signed by: Soledad Maciel MD (10/24/2019 8:12 AM) [id number] DICTATED AND SIGNED BY: SOLEDAD MACIEL MD DATE: 10/24/19 08 CC: STACIA HAMMOND Jr. DO; PCP,NO ~ PROCEDURE: CT ABD PELV W/ IV CONTRST ONLY PQRS Compliance Statement: One or more of the following individualized dose reduction techniques were utilized for this examination: 1. Automated exposure control 2. Adjustment of the mA and/or kV according to patient size 3. Use of iterative reconstruction technique CT ABD PELV W/ IV CONTRST ONLY Clinical Indication: Reason: RUQ abd pain / Spl. Instructions: / History: Comparison: CT abdomen and pelvis without contrast, June 07, 2019. Technique: Helical CT imaging of the abdomen and pelvis is performed after 75 cc of Omnipaque 300 IV contrast. Oral contrast not administered. Findings: The lung bases are clear. The cardiac size is normal. The liver, gallbladder, spleen, pancreas, adrenal glands, and abdominal aorta caliber are normal. There are punctate nonobstructing left renal calculi. There is no left hydronephrosis. There are a few punctate right renal calculi. There is mild right hydroureteronephrosis secondary to a 2 mm distal right ureteral calculus at the ureterovesicular junction, image 69. There is hyperenhancement of the right kidney compared to the left, probably due to the obstruction. No cortical hypoenhancement is seen to suggest pyelonephritis. The stomach is unremarkable. There is no dilated small bowel. There is no colon wall thickening. The appendix is normal. There is no abdominal adenopathy or free fluid. The urinary bladder is normal. There is no pelvic free fluid. Anteverted uterus. There is a peripherally enhancing probable right ovary functional cyst measuring 2.3 cm. No acute bone abnormality. IMPRESSION: 1. There is mild right obstructive uropathy secondary to a 2 mm calculus at the ureterovesicular junction. 2. There are punctate bilateral nonobstructing renal calculi. 3. Small probable right ovary functional cyst. No pelvic free fluid. Electronically signed by: Renato Bourne MD (10/24/2019 9:46 AM) [facility] DICTATED AND SIGNED BY: RENATO BOURNE MD DATE: 10/24/19 0946 CC: STACIA HAMMOND Jr. DO; PCP,NO ~ Course & Med Decision Making: Course & Med Decision Making Pertinent Labs and Imaging studies reviewed. (See chart for details) [] Guerda Disclaimer: Guerda Disclaimer: This electronic medical record was generated, in whole or in part, using a voice recognition dictation system. Departure Departure: Impression: Primary Impression: Ureterolithiasis Disposition: 01 HOME/RESIDENCE PRIOR TO ADM Condition: STABLE Referrals: PCP,NO (PCP) Patient Instructions: Kidney Stones Scripts Ketorolac Tromethamine (KETOROLAC TROMETHAMINE) 10 Mg Tablet 1 TAB PO PRN Q6HRS PRN for PAIN, #20 TAB Prov: STACIA HAMMOND Jr. DO 10/24/19 Ondansetron (ONDANSETRON ODT) 4 Mg Tab.rapdis 1 TAB PO PRN Q6-8HRS PRN for NAUSEA, #12 TAB Prov: STACIA HAMMOND Jr. DO 10/24/19 Oxycodone Hcl/Acetaminophen (PERCOCET 7.5-325 MG TABLET ) 1 Each Tablet 1 TAB PO PRN QID PRN for PAIN MDD 4 Tablet(s), #15 TAB 0 Refills Prov: STACIA HAMMOND Jr. DO 10/24/19 Justification of Admission: Justification of Admission: Justification of Admission Dx: N/A STACIA HAMMOND Jr. DO Oct 24, 2019 06:48
[2019-10-24] MEDS ORDERED: IV NORMAL SALINE 1,000ML 1,000 ML IV SCH (07:00)
[2019-10-24] MEDS ORDERED: ONDANSETRON PF 4 MG/2 ML VIAL. IVP ONE (07:00)
[2019-10-24 07:07] LABS: BASO % 1 % (0-3); EOS # 0.3 x10^3/uL (0.0-0.7); EOS % 3 % (0-3); HEMATOCRIT 35.6 % (36.0-47.0); HEMOGLOBIN 11.9 g/dL (12.0-15.5); LYMPH # 2.7 x10^3/uL (1.0-4.8); LYMPH % 29 % (24-48); MEAN CORPUSCULAR HEMOGLOBIN 27 pg (25-35); MEAN CORPUSCULAR HGB CONC 33 g/dL (31-37); MEAN CORPUSCULAR VOLUME 80 fL (79-100); MONO # 0.9 x10^3/uL (0.0-1.1); MONO % 10 % (0-9); NEUT # 5.4 x10^3uL (1.8-7.7); NEUT % 58 % (31-73); PLATELET COUNT 411 x10^3/uL (140-400); RED BLOOD COUNT 4.47 x10^6/uL (3.50-5.40); RED CELL DISTRIBUTION WIDTH 17.3 % (11.5-14.5); WHITE BLOOD COUNT 9.4 x10^3/uL (4.0-11.0)
[2019-10-24 07:13] LABS: CALCIUM 8.4 mg/dL (8.5-10.1); CREATININE 0.9 mg/dL (0.6-1.0); GFR 75.1; POTASSIUM 3.1 mmol/L (3.5-5.1)
[2019-10-24 07:16] LABS: BACTERIA,URINE MOD /HPF (0-FEW); BILIRUBIN,URINE NEG (NEG); CLARITY,URINE HAZY; COLOR,URINE YELLOW; GLUCOSE,URINE NEG (NEG); NITRITE,URINE NEG (NEG); RBC,URINE >40 /HPF (0-2); UROBILINOGEN,URINE 0.2 mg/dL (0.2 mg/dL)
[2019-10-24 07:17] LABS: SQUAMOUS EPITHELIAL CELL,UR MANY /LPF
[2019-10-24 07:19] LABS: ALBUMIN 3.2 g/dL (3.4-5.0); ALBUMIN/GLOBULIN RATIO 0.8 (1.0-1.7); TOTAL BILIRUBIN 0.3 mg/dL (0.2-1.0); TOTAL PROTEIN 7.1 g/dL (6.4-8.2)
[2019-10-24] MEDS ORDERED: MORPHINE SULFATE 4 MG/ML DISP.SYRIN. ONE (08:02)
--- NOTE | 2019-10-24 08:15 | RAD ---
Limited abdomen ultrasound HISTORY: Right upper quadrant abdominal pain. COMPARISON: CT abdomen and pelvis June 07, 2019. FINDINGS: Imaged pancreas, upper abdominal aorta and upper abdominal IVC are normal. The pancreas distal tail and lower abdominal segments of the vessels are obscured by bowel gas shadowing. Normal liver echogenicity. No liver mass or nodularity documented. Rib shadowing may limit visualization of the far upper segments of the liver beneath the diaphragm. Hepatopedal portal vein blood flow is present. No gallstones or inflammatory change of the gallbladder. No biliary ductal dilation the common bile duct diameter is 3.5 mm. Right renal length 10.5 cm. No right renal mass, calculus or hydronephrosis documented. Overlying bowel gas shadowing limits visualization of a portion of the right renal lower pole. Spleen and left kidney were not evaluated. IMPRESSION: Normal exam. Electronically signed by: Mode Maciel MD (10/24/2019 8:12 AM) [id number]
[2019-10-24] MEDS ORDERED: IOHEXOL 300 MG/ML 75 ML VIAL. IV ONE (08:30)
[2019-10-24] MEDS ORDERED: KETOROLAC 30 MG/ML VIAL. IVP ONE (08:45)
--- NOTE | 2019-10-24 09:49 | RAD ---
PQRS Compliance Statement: One or more of the following individualized dose reduction techniques were utilized for this examination: 1. Automated exposure control 2. Adjustment of the mA and/or kV according to patient size 3. Use of iterative reconstruction technique CT ABD PELV W/ IV CONTRST ONLY Clinical Indication: Reason: RUQ abd pain / Spl. Instructions: / History: Comparison: CT abdomen and pelvis without contrast, June 07, 2019. Technique: Helical CT imaging of the abdomen and pelvis is performed after 75 cc of Omnipaque 300 IV contrast. Oral contrast not administered. Findings: The lung bases are clear. The cardiac size is normal. The liver, gallbladder, spleen, pancreas, adrenal glands, and abdominal aorta caliber are normal. There are punctate nonobstructing left renal calculi. There is no left hydronephrosis. There are a few punctate right renal calculi. There is mild right hydroureteronephrosis secondary to a 2 mm distal right ureteral calculus at the ureterovesicular junction, image 69. There is hyperenhancement of the right kidney compared to the left, probably due to the obstruction. No cortical hypoenhancement is seen to suggest pyelonephritis. The stomach is unremarkable. There is no dilated small bowel. There is no colon wall thickening. The appendix is normal. There is no abdominal adenopathy or free fluid. The urinary bladder is normal. There is no pelvic free fluid. Anteverted uterus. There is a peripherally enhancing probable right ovary functional cyst measuring 2.3 cm. No acute bone abnormality. IMPRESSION: 1. There is mild right obstructive uropathy secondary to a 2 mm calculus at the ureterovesicular junction. 2. There are punctate bilateral nonobstructing renal calculi. 3. Small probable right ovary functional cyst. No pelvic free fluid. Electronically signed by: Renato Bourne MD (10/24/2019 9:46 AM) [facility]
[2019-10-24] MEDS ORDERED: ONDA4TAB12 PO (10:00)
[2019-10-24] MEDS ORDERED: KETO10TA PO (10:00)
[2019-10-24] MEDS ORDERED: OXYC1TAB19 PO (10:00)
== END 2019-10-24 10:10 | disposition home or self-care (01) ==
LOC: ER 06:21
DX: N13.2 Hydronephrosis with renal and ureteral calculous obstruction (principal); R11.2 Nausea with vomiting, unspecified; Z86.2 Personal history of diseases of the blood and blood-forming organs and certain disorders involving the immune mechanism; Z98.890 Other specified postprocedural states
CPT/HCPCS: 36415; 74177; 76705; 80053; 81001; 81025; 83690; 85025; 87086; 96361; 96374; 96375; 99285; J1885; J2405; J3010; Q9967; J7030

== ENCOUNTER 2019-10-27 09:46 | Emergency (ER) | payer OTHER ==
[~2019-10-27] VITALS: Ht 127 cm; Wt 80.9 kg
[~2019-10-27 09:46] MED LIST changes: +KETO10TA PO; +ONDA4TAB12 PO; +OXYC1TAB19 PO
[2019-10-27 09:50] VITALS: BP 117/67
[2019-10-27] MEDS ORDERED: TAMSULOSIN 0.4 MG CAP.ER.24H. PO ONE (10:00)
[2019-10-27] MEDS ORDERED: KETOROLAC 30 MG/ML VIAL. IVP ONE (10:00)
[2019-10-27] MEDS ORDERED: IV NORMAL SALINE 1,000ML 1,000 ML IV ONE (10:00)
--- NOTE | 2019-10-27 10:05 | PHYS DOC ---
Past History Past Medical History: Anemia, Kidney Stones, Other Additional Past Medical Histor: inflamed gallbladder Past Surgical History: Alcohol Use: None Drug Use: None General Adult EDM: Chief Complaint: FLANK PAIN HPI: HPI: Patient is a 29-year-old female who presents to the emergency department for evaluation. She was seen in the emergency department this past Friday, diagnosed with a 2 mm distal ureteral stone on the right. Notes, imaging reports, and lab results have been reviewed. The patient was prescribed oxycodone, Toradol, and Zofran, and states the pain has not improved. She still reports some right flank pain which increases morning. She has had some nausea but no vomiting. She denies any dysuria, but has had some hematuria. She has not had any vaginal bleeding or discharge. She has not had any fevers or chills. There are no alleviating or exacerbating factors to her symptoms. Review of Systems: Review of Systems: Constitutional: Denies fever or chills Eyes: Denies change in visual acuity HENT: Denies nasal congestion or sore throat Respiratory: Denies cough or shortness of breath Cardiovascular: Denies chest pain or edema GI: As per HPI : Denies dysuria Musculoskeletal: Denies back pain or joint pain Integument: Denies rash Neurologic: Denies headache, focal weakness or sensory changes Endocrine: Denies polyuria or polydipsia Lymphatic: Denies swollen glands Psychiatric: Denies depression or anxiety Heart Score: Risk Factors: Risk Factors: DM, Current or recent (<one month) smoker, HTN, HLP, family history of CAD, obesity. Risk Scores: Score 0 - 3: 2.5% MACE over next 6 weeks - Discharge Home Score 4 - 6: 20.3% MACE over next 6 weeks - Admit for Clinical Observation Score 7 - 10: 72.7% MACE over next 6 weeks - Early Invasive Strategies Current Medications: Current Meds: Current Medications Medications (Trade) Dose Ordered Sig/[facility] Start Time Stop Time Status Last Admin Dose Admin Ketorolac Tromethamine (Toradol 30mg Vial) 30 mg 1X ONCE 10/27/19 10:00 10/27/19 10:01 Sodium Chloride 1,000 ml @ 1,000 mls/hr 1X ONCE 10/27/19 10:00 10/27/19 10:59 Tamsulosin HCl (Flomax) 0.4 mg 1X ONCE 10/27/19 10:00 10/27/19 10:01 Allergies: Allergies: Allergies Coded Allergies Type Severity Reaction Last Updated Verified No Known Drug Allergies 05/01/17 No Physical Exam: PE: PHYSICAL EXAM: CONSTITUTIONAL: Well developed, well nourished HEAD: normocephalic, atraumatic EENT: PERRL, EOMI. Conjunctivae normal color, sclerae non-icteric; moist mucous membranes. NECK: Supple, non-tender; no meningismus. LUNGS: Lungs CTA, breathing even and unlabored. Normal air movement. HEART: Regular rate and rhythm, no murmur CHEST: No deformity; non-tender ABDOMEN: The abdomen is soft, there is mild diffuse right-sided tenderness to palpation of the abdomen without rebound or guarding, the remainder of the abdomen is soft and non-tender, no masses or bruits. EXTREM: Normal ROM; no deformity, no calf tenderness. Normal pulses palpable in all extremities. There is no pedal edema. SKIN: No rash; no diaphoresis NEURO: Alert; normal speech and cognition; CN's grossly intact; strength grossly intact without focal deficit. BACK: There is right-sided CVA tenderness to palpation. There is no left-sided CVA TTP. Current Patient Data: Labs: Laboratory Tests Test 10/27/19 10:03 10/27/19 10:54 White Blood Count 8.8 x10^3/uL Red Blood Count 4.42 x10^6/uL Hemoglobin 12.0 g/dL Hematocrit 35.8 % Mean Corpuscular Volume 81 fL Mean Corpuscular Hemoglobin 27 pg Mean Corpuscular Hemoglobin Concent 33 g/dL Red Cell Distribution Width 17.2 % Platelet Count 411 x10^3/uL Sodium Level 138 mmol/L Potassium Level 4.0 mmol/L Chloride Level 104 mmol/L Carbon Dioxide Level 24 mmol/L Anion Gap 10 Blood Urea Nitrogen 8 mg/dL Creatinine 0.9 mg/dL Estimated GFR (Cockcroft-Gault) 75.1 Glucose Level 100 mg/dL Calcium Level 8.5 mg/dL Urine Collection Type Unknown Urine Color Yellow Urine Clarity Hazy Urine pH 7.0 Urine Specific [place] 1.025 Urine Protein Neg Urine Glucose (UA) Neg mg/dL Urine Ketones (Stick) Neg mg/dL Urine Blood Small Urine Nitrite Neg Urine Bilirubin Neg Urine Urobilinogen Dipstick 0.2 mg/dL Urine Leukocyte Esterase Neg Urine RBC 11-20 /HPF Urine WBC 1-4 /HPF Urine Squamous Epithelial Cells Many /LPF Urine Bacteria Mod /HPF Urine Mucus Marked /LPF Current Medications Medications (Trade) Dose Ordered Sig/[facility]ino Route PRN Reason Start Time Stop Time Status Last Admin Dose Admin Ketorolac Tromethamine (Toradol 30mg Vial) 30 mg 1X ONCE IVP 10/27/19 10:00 10/27/19 10:01 DC 10/27/19 10:06 Sodium Chloride 1,000 ml @ 1,000 mls/hr 1X ONCE IV 10/27/19 10:00 10/27/19 10:59 DC 10/27/19 10:06 Tamsulosin HCl (Flomax) 0.4 mg 1X ONCE PO 10/27/19 10:00 10/27/19 10:01 DC 10/27/19 10:06 Vital Signs: Vital Signs Date Time Temp Pulse Resp B/P (MAP) Pulse Ox O2 Delivery O2 Flow Rate FiO2 10/27/19 09:50 98.1 85 16 117/67 (84) 99 Room Air EKG: EKG: [] Radiology/Procedures: Radiology/Procedures: [] Course & Med Decision Making: Course & Med Decision Making Pertinent Labs and Imaging studies reviewed. (See chart for details) [] 11:20 AM: The patient's condition remained stable, her pain has improved and she is feeling better. I discussed the importance of close urology follow-up, straining her urine, the need for adequate hydration, and I will add Flomax to her medication regimen. Return precautions were discussed in detail. Overall, the patient's stone is small and fairly distal, and has a high likelihood of passing spontaneously. Dragon Disclaimer: Dragon Disclaimer: This electronic medical record was generated, in whole or in part, using a voice recognition dictation system. Departure Departure: Impression: Primary Impression: Kidney stone Disposition: 01 HOME/RESIDENCE PRIOR TO ADM Condition: STABLE Referrals: ARIEL SUAZO CORONARY CARE UNIT NURSE (PCP) Patient Instructions: Diet for Kidney Stones, Kidney Stones Additional Instructions: Follow-up with [facility], for further evaluation. Please call [phone] to schedule an appointment. Strain your urine. If you find a kidney stone, bring it to your urology follow- up appointment, as this may help the urologist to determine what is causing the stone what you might be able to do to prevent this from happening in the future. Scripts Tamsulosin Hcl (FLOMAX) 0.4 Mg Cap.er.24h 0.4 MG PO DAILY for -, #20 CAP.SR Prov: JOE PRECIADO MD 10/27/19 Justification of Admission: Justification of Admission: Justification of Admission Dx: N/A JOE PRECIADO MD Oct 27, 2019 10:05
[2019-10-27 10:17] LABS: HEMATOCRIT 35.8 % (36.0-47.0); RED BLOOD COUNT 4.42 x10^6/uL (3.50-5.40); RED CELL DISTRIBUTION WIDTH 17.2 % (11.5-14.5); WHITE BLOOD COUNT 8.8 x10^3/uL (4.0-11.0)
[2019-10-27 10:24] LABS: CALCIUM 8.5 mg/dL (8.5-10.1); CREATININE 0.9 mg/dL (0.6-1.0); GFR 75.1
[2019-10-27 11:14] LABS: BACTERIA,URINE MOD /HPF (0-FEW); BILIRUBIN,URINE NEG (NEG); CLARITY,URINE HAZY; COLOR,URINE YELLOW; GLUCOSE,URINE NEG (NEG); NITRITE,URINE NEG (NEG); SQUAMOUS EPITHELIAL CELL,UR MANY /LPF; UROBILINOGEN,URINE 0.2 mg/dL (0.2 mg/dL)
[2019-10-27] MEDS ORDERED: TAMS0.4C97 PO (11:24)
[2019-10-27] MEDS ORDERED: AMOX250S4 PO (14:07)
== END 2019-10-27 11:32 | disposition home or self-care (01) ==
LOC: ER 09:46
DX: N20.0 Calculus of kidney (principal); Z86.2 Personal history of diseases of the blood and blood-forming organs and certain disorders involving the immune mechanism; Z98.890 Other specified postprocedural states
CPT/HCPCS: 36415; 80048; 81001; 85027; 96374; 99283; J1885; J7030

== ENCOUNTER 2020-05-01 13:55 | Emergency (ER) | payer OTHER ==
[~2020-05-01] VITALS: Ht 149.9 cm; Wt 80.0 kg
[~2020-05-01 13:55] MED LIST changes: +AMOX250S4 PO; +TAMS0.4C97 PO
[2020-05-01] MEDS ORDERED: IV NORMAL SALINE 1,000ML 1,000 ML IV ONE (14:30)
[2020-05-01] MEDS ORDERED: ONDANSETRON PF 4 MG/2 ML VIAL. IVP ONE (14:30)
--- NOTE | 2020-05-01 14:38 | PHYS DOC ---
Past History Past Medical History: No Pertinent History Additional Past Medical Histor: inflamed gallbladder (EMEKA HAMMER APRN) Past Surgical History: No Surgical History (EMEKA HAMMER APRN) Alcohol Use: None Drug Use: None (EMEKA HAMMER APRN) Adult General Chief Complaint Chief Complaint: DIARRHEA HPI HPI Patient is a 29-year-old female who presents with diarrhea since yesterday morning. Patient reports eating eggs yesterday morning for breakfast and then finding out that they were . Patient reports approximately 16 watery stools since yesterday morning.Patient also reports a decrease in appetite. Patient denies nausea, vomiting, or fever. Patient reports trying to take Pepto for the diarrhea but reports not being able to take the medication because she thought that it tasted gross. Patient denies any recent antibiotic use. Patient denies any blood in stool. (EMEKA HAMMER APRN) Review of Systems Review of Systems Constitutional: Denies fever or chills [patient reports malaise] Eyes: Denies change in visual acuity, redness, or eye pain [] HENT: Denies nasal congestion or sore throat [] Respiratory: Denies cough or shortness of breath [] Cardiovascular: No additional information not addressed in HPI [] GI: Denies abdominal pain, nausea, vomiting, bloody stools, complains of diarrhea : Denies dysuria or hematuria [] Musculoskeletal: Denies back pain or joint pain [] Integument: Denies rash or skin lesions [] Neurologic: Denies headache, focal weakness or sensory changes [] Endocrine: Denies polyuria or polydipsia [] All other systems were reviewed and found to be within normal limits, except as documented in this note. (EMEKA HAMMER APRN) Allergies Allergies Allergies Coded Allergies Type Severity Reaction Last Updated Verified No Known Drug Allergies 05/01/20 No (EMEKA HAMMER APRN) Physical Exam Physical Exam Constitutional: Well developed, well nourished, no acute distress, non-toxic appearance. [] HENT: Normocephalic, atraumatic, bilateral external ears normal, oropharynx moist, no oral exudates, nose normal. [] Eyes: PERRLA, EOMI, conjunctiva normal, no discharge. [] Neck: Normal range of motion, no tenderness, supple, no stridor. [] Cardiovascular:Heart rate regular rhythm, no murmur [] Lungs & Thorax: Bilateral breath sounds clear to auscultation [] Abdomen: Bowel sounds normal, soft, no tenderness, no masses, no pulsatile masses. [] Skin: Warm, dry, no erythema, no rash. [] Back: No tenderness, no CVA tenderness. [] Extremities: No tenderness, no cyanosis, no clubbing, ROM intact, no edema. [] Neurologic: Alert and oriented X 3, normal motor function, normal sensory function, no focal deficits noted. [] Psychologic: Affect normal, judgement normal, mood normal. [] (EMEKA HAMMER APRN) Current Patient Data Vital Signs Vital Signs Date Time Temp Pulse Resp B/P (MAP) Pulse Ox O2 Delivery O2 Flow Rate FiO2 05/01/20 14:15 98.3 111 18 140/93 (109) 100 Room Air (EMEKA HAMMER APRN) EKG EKG [] (EMEKA HAMMER APRN) Radiology/Procedures Radiology/Procedures [] (EMEKA HAMMER APRN) Heart Score Risk Factors: Risk Factors: DM, Current or recent (<one month) smoker, HTN, HLP, family history of CAD, obesity. Risk Scores: Risk Factors: DM, Current or recent (<one month) smoker, HTN, HLP, family history of CAD, obesity. (EMEKA HAMMER APRN) Course & Med Decision Making Course & Med Decision Making Pertinent Labs and Imaging studies reviewed. (See chart for details) [] Given patient's ingestion of eggs with result in diarrhea this is likely a foodborne illness. Will evaluate labs and hydrate patient. Acute labs showed no acute abnormalities. Patient instructed to take pepto if diarrhea continues. Patient instructed to stay well hydrated. (EMEKA HAMMER APRN) Course & Med Decision Making I oversaw on the above date of service of this patient and discussed the care with the [employer]PLICATION[employer] MANAGER. I agree with the findings, plan of care, and disposition as documented. Tigre Russell DO Attending ED Physician (TIGRE RUSSELL DO) Guerda Disclaimer Dragon Disclaimer This electronic medical record was generated, in whole or in part, using a voice recognition dictation system. (EMEKA HAMMER APRN) Departure Departure: Impression: Primary Impression: Gastroenteritis Additional Impression: Diarrhea Disposition: 01 DC HOME SELF CARE/HOMELESS Condition: GOOD Referrals: ARIEL SUAZO ENTERPRISE APPLICATIONS MANAGER (PCP) Patient Instructions: Diarrhea, [id number] Additional Instructions: Take Pepto Bismol if diarrhea continues. Drink plenty of fluids. Avoid eating food in the future. Follow up with your primary doctor if symptoms continue. Problem Qualifiers Additional Impression: Diarrhea Diarrhea type: unspecified type Qualified Codes: R19.7 - Diarrhea, un specified EMEKA HAMMER APRN May 01, 2020 14:38 TIGRE RUSSELL DO May 02, 2020 06:28
[2020-05-01 15:00] LABS: BASO % 0 % (0-3); EOS % 1 % (0-3); HEMATOCRIT 37.4 % (36.0-47.0); LYMPH # 0.8 x10^3/uL (1.0-4.8); LYMPH % 12 % (24-48); MEAN CORPUSCULAR HEMOGLOBIN 26 pg (25-35); MEAN CORPUSCULAR HGB CONC 32 g/dL (31-37); MEAN CORPUSCULAR VOLUME 81 fL (79-100); MONO # 0.8 x10^3/uL (0.0-1.1); MONO % 12 % (0-9); NEUT # 4.9 x10^3uL (1.8-7.7); NEUT % 75 % (31-73); PLATELET COUNT 384 x10^3/uL (140-400); RED CELL DISTRIBUTION WIDTH 14.9 % (11.5-14.5); WHITE BLOOD COUNT 6.6 x10^3/uL (4.0-11.0)
[2020-05-01 15:01] LABS: CALCIUM 8.9 mg/dL (8.5-10.1); CREATININE 0.8 mg/dL (0.6-1.0); POTASSIUM 3.9 mmol/L (3.5-5.1)
[2020-05-01 15:09] LABS: ALBUMIN 3.5 g/dL (3.4-5.0); ALBUMIN/GLOBULIN RATIO 0.8 (1.0-1.7); TOTAL BILIRUBIN 0.3 mg/dL (0.2-1.0)
[2020-05-01 15:12] LABS: BACTERIA,URINE 0 /HPF (0-FEW); BILIRUBIN,URINE NEG (NEG); CLARITY,URINE CLEAR; COLOR,URINE YELLOW; GLUCOSE,URINE NEG (NEG); NITRITE,URINE NEG (NEG); SQUAMOUS EPITHELIAL CELL,UR MANY /LPF; UROBILINOGEN,URINE 0.2 mg/dL (0.2 mg/dL)
[2020-05-01 15:13] LABS: U PREG PATIENT NEGATIVE (NEG)
[2020-05-01 15:46] VITALS: BP 134/75
[2020-05-02] MEDS ORDERED: TAMS0.4C97 PO (14:25)
[2020-05-02] MEDS ORDERED: HYDR-3165 PO (14:25)
== END 2020-05-01 16:08 | disposition home or self-care (01) ==
LOC: ER 13:55
DX: K52.9 Noninfective gastroenteritis and colitis, unspecified (principal)
CPT/HCPCS: 36415; 80053; 81001; 81025; 85025; 96361; 96374; 99283; J2405; J7030

== ENCOUNTER 2020-05-02 12:03 | Emergency (ER) | payer OTHER ==
[~2020-05-02] VITALS: Ht 149.9 cm; Wt 80.0 kg
[2020-05-02] MEDS ORDERED: IV NORMAL SALINE 1,000ML 1,000 ML IV ONE (12:45)
[2020-05-02] MEDS ORDERED: ONDANSETRON PF 4 MG/2 ML VIAL. IVP ONE (12:45)
[2020-05-02] MEDS ORDERED: KETOROLAC 30 MG/ML VIAL. IVP ONE (12:45)
--- NOTE | 2020-05-02 12:56 | EKG ---
[address] [address] Test Date: 2020-05-02 Test Time: 12:49:23 Pat Name: IBIS CHAN Department: Room: Gender: F [employer] Builder: KONRAD : 1990 Requested By: DASHA MACDONALD Order Number: [id number] Reading MD: Measurements Intervals [place] Rate: 69 P: 43 WV: 140 QRS: 85 QRSD: 76 T: 29 QT: 390 QTc: 424 Interpretive Statements SINUS RHYTHM NORMAL ECG RI6.02 No previous ECG available for comparison
--- NOTE | 2020-05-02 13:02 | PHYS DOC ---
Past History Past Medical History: No Pertinent History, Kidney Stones, Other Additional Past Medical Histor: inflamed gallbladder (DASHA MACDONALD APRN) Past Surgical History: (DASHA MACDONALD APRN) Alcohol Use: None Drug Use: None (DASHA MACDONALD APRN) General Adult EDM: Chief Complaint: ABDOMINAL PAIN HPI: HPI: Patient is a 29-year-old female who presents with left flank pain. Patient reports pain started at 10 AM this morning. Patient was seen in ED yesterday for nausea and diarrhea, and treated for gastroenteritis. Patient reports that the abdominal pain and flank pain is a new and started today. Patient is still having diarrhea and nausea. Patient reports taking 2 acetaminophen this morning with little relief. Patient reports tenderness to left abdomen and left flank. Patient has a history of kidney stones. Patient denies pain with urination (DASHA MACDONALD APRN) Review of Systems: Review of Systems: Constitutional: Denies fever or chills Eyes: Denies change in visual acuity HENT: Denies nasal congestion or sore throat Respiratory: Denies cough or shortness of breath Cardiovascular: Denies chest pain or edema GI: Reports abdominal pain, nausea . Denies vomiting, bloody stools or diarrhea : Denies dysuria, reporting left-sided flank pain Musculoskeletal: Denies back pain or joint pain Integument: Denies rash Neurologic: Denies headache, focal weakness or sensory changes Endocrine: Denies polyuria or polydipsia Lymphatic: Denies swollen glands Psychiatric: Denies depression or anxiety (DASHA MACDONALD APRN) Current Medications: Current Meds: Current Medications Medications (Trade) Dose Ordered Sig/Mino Start Time Stop Time Status Last Admin Dose Admin Ketorolac Tromethamine (Toradol 30mg Vial) 30 mg 1X ONCE 05/02/20 12:45 05/02/20 12:46 DC Ondansetron HCl (Zofran) 4 mg 1X ONCE 05/02/20 12:45 05/02/20 12:46 DC Sodium Chloride 1,000 ml @ 1,000 mls/hr 1X ONCE 05/02/20 12:45 05/02/20 13:44 05/02/20 12:57 1,000 MLS/HR (DASHA MACDONALD APRN) Allergies: Allergies: Allergies Coded Allergies Type Severity Reaction Last Updated Verified No Known Drug Allergies 05/02/20 No (DASHA MACDONALD APRN) Physical Exam: PE: Constitutional: Well developed, well nourished, no acute distress, non-toxic appearance. [] HENT: Normocephalic, atraumatic, bilateral external ears normal, oropharynx moist, no oral exudates, nose normal. [] Eyes: PERRLA, EOMI, conjunctiva normal, no discharge. [] Neck: Normal range of motion, no tenderness, supple, no stridor. [] Cardiovascular:Heart rate regular rhythm, no murmur [] Lungs & Thorax: Bilateral breath sounds clear to auscultation [] Abdomen: Bowel sounds normal, soft, no masses, no pulsatile masses. Tenderness to left side of abdomen [] Skin: Warm, dry, no erythema, no rash. [] Back: left-sided CVA tenderness. [] Extremities: No tenderness, no cyanosis, no clubbing, ROM intact, no edema. [] Neurologic: Alert and oriented X 3, normal motor function, normal sensory function, no focal deficits noted. [] Psychologic: Affect normal, judgement normal, mood normal. [] (DASHA MACDONALD APRN) Current Patient Data: Vital Signs: Vital Signs Date Time Temp Pulse Resp B/P (MAP) Pulse Ox O2 Delivery O2 Flow Rate FiO2 05/02/20 12:26 98.9 85 18 119/70 (86) 99 Room Air (DASHA MACDONALD APRN) EKG: EKG: Sinus rhythm, normal EKG. Read at 1257. [] (DASHA MACDONALD APRN) Radiology/Procedures: Radiology/Procedures: []IMPRESSION: 1. There is a 2 mm calcific stone at the left UVJ with mild obstructive uropathy. 2. Mild bilateral nephrolithiasis. 3. Otherwise no acute findings. Normal appendix. (DASHA MACDONALD APRN) Heart Score: Risk Factors: Risk Factors: DM, Current or recent (<one month) smoker, HTN, HLP, family history of CAD, obesity. Risk Scores: Score 0 - 3: 2.5% MACE over next 6 weeks - Discharge Home Score 4 - 6: 20.3% MACE over next 6 weeks - Admit for Clinical Observation Score 7 - 10: 72.7% MACE over next 6 weeks - Early Invasive Strategies (DASHA MACDONALD APRN) Course & Med Decision Making: Course & Med Decision Making Pertinent Labs and Imaging studies reviewed. (See chart for details) [] CT of abdomen and pelvis ordered. Patient reports a history of kidney stones. Flank pain caused by 2 mm kidney stone. Flomax, hydrocodone ordered in ED. Will send paint home with flomax, norco and strainer. (DASHA MACDONALD APRN) Course & Med Decision Making I oversaw care of hemodynamically stable, non-toxic patient. I discussed case with MANAGER PLANNING. I agree to plan of care and disposition as written. high likelihood of stone passing, no indication for antibiotics at this time. (TGIRE RUSSELL DO) Dragon Disclaimer: Dragon Disclaimer: This electronic medical record was generated, in whole or in part, using a voice recognition dictation system. (DASHA MACDONALD APRN) Departure Departure: Impression: Primary Impression: Kidney stone Additional Impression: Flank pain Disposition: 01 DC HOME SELF CARE/HOMELESS Condition: IMPROVED Referrals: ARIEL SUAZO MANAGER PLANNING (PCP) Patient Instructions: Kidney Stones, [id number] Additional Instructions: Increase fluids. Take ibuprofen as needed for pain and pain medication as prescribed. Please use strainer at home when urinating. Take flomax as prescribed. Scripts Hydrocodone Bit/Acetaminophen (NORCO 5-325 TABLET) 1 Each Tablet 1-2 TAB PO Q4-6HRS for pain, #12 TAB Prov: DASHA MACDONALD APRN 05/02/20 Tamsulosin Hcl (FLOMAX) 0.4 Mg Cap.er.24h 1 CAP PO DAILY for kidney stone for 14 Days, #14 CAP 0 Refills Prov: DASHA MACDONALD APRN 05/02/20 DASHA MACDONALD APRN May 02, 2020 13:02 TIGRE RUSSELL DO May 03, 2020 12:27
[2020-05-02 13:19] LABS: BASO % 0 % (0-3); EOS % 0 % (0-3); HEMATOCRIT 35.9 % (36.0-47.0); HEMOGLOBIN 11.8 g/dL (12.0-15.5); LYMPH # 0.6 x10^3/uL (1.0-4.8); LYMPH % 6 % (24-48); MEAN CORPUSCULAR HEMOGLOBIN 26 pg (25-35); MEAN CORPUSCULAR HGB CONC 33 g/dL (31-37); MEAN CORPUSCULAR VOLUME 80 fL (79-100); MONO # 0.6 x10^3/uL (0.0-1.1); MONO % 6 % (0-9); NEUT # 9.4 x10^3uL (1.8-7.7); NEUT % 88 % (31-73); PLATELET COUNT 420 x10^3/uL (140-400); RED BLOOD COUNT 4.49 x10^6/uL (3.50-5.40); RED CELL DISTRIBUTION WIDTH 14.4 % (11.5-14.5); WHITE BLOOD COUNT 10.7 x10^3/uL (4.0-11.0)
[2020-05-02 13:24] LABS: CALCIUM 8.6 mg/dL (8.5-10.1); GFR 66.5; POTASSIUM 3.2 mmol/L (3.5-5.1)
[2020-05-02 13:29] LABS: ALBUMIN 3.4 g/dL (3.4-5.0); ALBUMIN/GLOBULIN RATIO 0.8 (1.0-1.7); TOTAL BILIRUBIN 0.3 mg/dL (0.2-1.0); TOTAL PROTEIN 7.6 g/dL (6.4-8.2)
--- NOTE | 2020-05-02 13:33 | RAD ---
CT abdomen pelvis without contrast dated 05/02/2020. No comparison available. Clinical data indication: Left lower quadrant pain and flank pain. TECHNIQUE: Contiguous axial imaging the abdomen pelvis performed without the administration of IV or oral contra st. One or more of the following individualized dose reduction techniques were utilized for this examinat ion: 1. Automated exposure control 2. Adjustment of the mA and/or kV according to patient size 3. Use of iterative reconstruction technique. FINDINGS: Limited images of lung bases are clear. Heart size within normal limits. No pleural or pericardial ef fusion. Solid abdominal viscera not well evaluated in the absence of contrast material. No apparent attenuati on abnormality of the liver or spleen. Pancreas, adrenal glands, gallbladder unremarkable. There stones at the upper, mid and lower pole right kidney measuring 1 to 2 mm in size each. There ar e also a couple of small calculi at the upper and lower pole left kidney. There is a tiny calcific de nsity near the left UVJ measuring 2millimeters with mild proximal dilation of the left ureter and lef t pelvicalyceal system. No right ureteral stone or right hydronephrosis. Unopacified GI tract normal in caliber and contour. No focal bowel wall thickening. No inflammatory s tranding in the mesentery. The appendix is normal in caliber. No ascites or lymphadenopathy. Abdomina l aorta normal in caliber. Images of pelvis show nondistended urinary bladder. Uterus and adnexa are unremarkable. No free fluid or pelvic lymphadenopathy. Bone windows show no acute findings. IMPRESSION: 1. There is a 2 mm calcific stone at the left UVJ with mild obstructive uropathy. 2. Mild bilateral nephrolithiasis. 3. Otherwise no acute findings. Normal appendix. Electronically signed by: Vikram Vazquez MD (05/02/2020 1:31 PM) [id number]
[2020-05-02 13:34] LABS: BILIRUBIN,URINE NEG (NEG); CLARITY,URINE TURBID; COLOR,URINE AMBER; GLUCOSE,URINE NEG (NEG)
[2020-05-02 13:35] LABS: BACTERIA,URINE FEW /HPF (0-FEW); NITRITE,URINE NEG (NEG); RBC,URINE >40 /HPF (0-2); SQUAMOUS EPITHELIAL CELL,UR MANY /LPF; UROBILINOGEN,URINE 0.2 mg/dL (0.2 mg/dL)
[2020-05-02] MEDS ORDERED: HYDROcodone/APAP 5/325MG 1 TAB TABLET PO ONE (14:00)
[2020-05-02] MEDS ORDERED: TAMSULOSIN 0.4 MG CAP.ER.24H. PO ONE (14:15)
[2020-05-02] MEDS ORDERED: TAMS0.4C97 PO (14:25)
[2020-05-02] MEDS ORDERED: HYDR-3165 PO (14:25)
[2020-05-02 14:45] VITALS: BP 104/66
== END 2020-05-02 14:52 | disposition home or self-care (01) ==
LOC: ER 12:03
DX: N13.2 Hydronephrosis with renal and ureteral calculous obstruction (principal); R19.7 Diarrhea, unspecified; Z87.442 Personal history of urinary calculi; Z98.890 Other specified postprocedural states
CPT/HCPCS: 36415; 74176; 80053; 81001; 81025; 85025; 93005; 96361; 96374; 96375; 99285; J1885; J2405; J7030

== ENCOUNTER 2020-11-10 01:35 | Emergency (ER) | payer OTHER ==
[~2020-11-10] VITALS: Ht 149.9 cm; Wt 80.0 kg
[~2020-11-10 01:35] MED LIST changes: -LIDO30CR TP; +LIDO30CR2 TP
--- NOTE | 2020-11-10 01:51 | PHYS DOC ---
Past History Past Medical History: No Pertinent History, Kidney Stones, Other Additional Past Medical Histor: inflamed gallbladder Past Surgical History: Alcohol Use: None Drug Use: None Adult General Chief Complaint Chief Complaint: [facility]BDOM[facility]AL [facility]IN [facility] HPI This is a very pleasant 30-year-old female was evaluated in the emergency department with right upper quadrant pain. Patient also complained of vague right-sided pain. Patient reports that her pain started about 2-1/2 hours prior to arrival to the ER. Her pain is sharp and achy in nature right upper quadrant without any radiating to the groin area. Patient states that she ate dinner with a rise and beans. She had no unusual food intake. She had normal bowel movement. She denies any urinary symptoms. She did report mild nausea associated with abdominal pain but no vomiting. She reports history of kidney stones. She denies any fever, chills, headache, lightheadedness, dizziness, chest pain, shortness of breath, palpitation. Denies any sick contact or recent travel. Denies any antibiotic use or hospitalization. Review of Systems Review of Systems Constitutional: Denies fever or chills [] Eyes: Denies change in visual acuity, redness, or eye pain [] HENT: Denies nasal congestion or sore throat [] Respiratory: Denies cough or shortness of breath [] Cardiovascular: No additional information not addressed in HPI [] GI: Report abdominal pain associated nausea no vomiting. No bloody stool or diarrhea. : Denies dysuria or hematuria [] Musculoskeletal: Denies back pain or joint pain [] Integument: Denies rash or skin lesions [] Neurologic: Denies headache, focal weakness or sensory changes [] Endocrine: Denies polyuria or polydipsia [] All other systems were reviewed and found to be within normal limits, except as documented in this note. Allergies Allergies Allergies Coded Allergies Type Severity Reaction Last Updated Verified No Known Drug Allergies 05/02/20 No Physical Exam Physical Exam Constitutional: Well developed, well nourished, no acute distress, non-toxic appearance. [] HENT: Normocephalic, atraumatic, bilateral external ears normal, oropharynx moist, no oral exudates, nose normal. [] Eyes: PERRLA, EOMI, conjunctiva normal, no discharge. [] Neck: Normal range of motion, no tenderness, supple, no stridor. [] Cardiovascular:Heart rate regular rhythm, no murmur [] Lungs & Thorax: Bilateral breath sounds clear to auscultation [] Abdomen: Bowel sounds normal, soft, mild tenderness right upper quadrant with negative Gillis sign, no masses, no pulsatile masses. [] Skin: Warm, dry, no erythema, no rash. [] Back: No tenderness, no CVA tenderness. [] Extremities: No tenderness, no cyanosis, no clubbing, ROM intact, no edema. [] Neurologic: Alert and oriented X 3, normal motor function, normal sensory function, no focal deficits noted. [] Psychologic: Affect normal, judgement normal, mood normal. [] EKG EKG [] Radiology/Procedures Radiology/Procedures [] Heart Score C/O Chest Pain: N/A Risk Factors: Risk Factors: DM, Current or recent (<one month) smoker, HTN, HLP, family history of CAD, obesity. Risk Scores: Risk Factors: DM, Current or recent (<one month) smoker, HTN, HLP, family history of CAD, obesity. Course & Med Decision Making Course & Med Decision Making Patient was examined and evaluated immediately upon arrival to the ER. She was placed in monitor. Her vital signs stable. Patient is in pain upon palpation and generalized discomfort noted. Patient was placed on IV. She was given antiemetics Zofran 4 mg IV x1, IV fluids normal saline 1 L x 1 and morphine 4 mg IV x1. Patient blood work reviewed. Unremarkable. Her CT abdomen pelvis also reviewed. She does not have any gallbladder issue at this junction as CT scan not superior for this. However she does have punctate bilateral nephrolithiasis . Patient was advised to follow-up with primary care provider for ultrasound studies right upper quadrant to rule out any gallbladder and liver pathology. She overall felt better. She was discharged home in stable and satisfactory condition. She was discharged on [place] naproxen and Zofran. Laboratory Tests Test 11/10/20 01:40 11/10/20 01:50 11/10/20 01:59 Urine Collection Type Unknown Urine Color Yellow Urine Clarity Clear Urine pH 6.0 Urine Specific [place] 1.025 Urine Protein Neg Urine Glucose (UA) Neg mg/dL Urine Ketones (Stick) Trace mg/dL Urine Blood Neg Urine Nitrite Neg Urine Bilirubin Neg Urine Urobilinogen Dipstick 1.0 mg/dL Urine Leukocyte Esterase Neg Urine RBC 0 /HPF Urine WBC Occ /HPF Urine Squamous Epithelial Cells Mod /LPF Urine Bacteria 0 /HPF White Blood Count 8.3 x10^3/uL Red Blood Count 4.44 x10^6/uL Hemoglobin 11.1 g/dL Hematocrit 33.9 % Mean Corpuscular Volume 76 fL Mean Corpuscular Hemoglobin 25 pg Mean Corpuscular Hemoglobin Concent 33 g/dL Red Cell Distribution Width 16.3 % Platelet Count 487 x10^3/uL Neutrophils (%) (Auto) 61 % Lymphocytes (%) (Auto) 27 % Monocytes (%) (Auto) 9 % Eosinophils (%) (Auto) 3 % Basophils (%) (Auto) 1 % Neutrophils # (Auto) 5.0 x10^3uL Lymphocytes # (Auto) 2.2 x10^3/uL Monocytes # (Auto) 0.7 x10^3/uL Eosinophils # (Auto) 0.3 x10^3/uL Basophils # (Auto) 0.1 x10^3/uL Sodium Level 142 mmol/L Potassium Level 3.9 mmol/L Chloride Level 107 mmol/L Carbon Dioxide Level 25 mmol/L Anion Gap 10 Blood Urea Nitrogen 8 mg/dL Creatinine 0.9 mg/dL Estimated GFR (Cockcroft-Gault) 74.6 BUN/Creatinine Ratio 9 Glucose Level 105 mg/dL Calcium Level 8.3 mg/dL Total Bilirubin 0.3 mg/dL Aspartate Amino Transf (AST/SGOT) 12 U/L Alanine Aminotransferase (ALT/SGPT) 25 U/L Alkaline Phosphatase 111 U/L Total Protein 7.3 g/dL Albumin 3.4 g/dL Albumin/Globulin Ratio 0.9 Lipase 110 U/L Serum Test, Qualitative Negative Bedside Urine HCG, Qualitative hcg negative Current Medications Medications (Trade) Dose Ordered Sig/Mino Route PRN Reason Start Time Stop Time Status Last Admin Dose Admin Morphine Sulfate (Morphine 4mg Syringe) 4 mg PRN Q15MIN PRN IV/SQ PAIN GREATER THAN 3/10 11/10/20 02:15 11/10/20 03:35 DC 11/10/20 02:22 Sodium Chloride 1,000 ml @ 1,000 mls/hr Q1H IV 11/10/20 02:15 11/10/20 03:14 DC 11/10/20 02:22 Sodium Chloride (Normal Saline Flush) 10 ml QSHIFT PRN IV AFTER MEDS AND BLOOD DRAWS 11/10/20 02:15 11/10/20 03:35 DC Ondansetron HCl (Zofran) 4 mg 1X ONCE IVP 11/10/20 02:15 11/10/20 02:16 DC 11/10/20 02:23 Iohexol (Omnipaque 300 Mg/ml) 75 ml 1X ONCE IV 11/10/20 02:15 11/10/20 02:16 DC 11/10/20 02:14 Info (Do NOT chart on this entry -- for MONITORING) 1 each PRN DAILY PRN MC SEE COMMENTS 11/10/20 02:15 11/10/20 03:35 DC Acetaminophen/ Hydrocodone Bitart (Lortab 5/325) 2 tab 1X ONCE PO 11/10/20 03:15 11/10/20 03:16 DC 11/10/20 03:32 PATIENT: IBIS CHANACCOUNT: [id number] : 1990 LOCATION: ER AGE: 30 SEX: F EXAM STATUS: REG ER ORD. PHYSICIAN: JULIET PETERS MD REASON: Right sided abdomen pain Omni 300 75cc PROCEDURE: CT ABD PELV W/ IV CONTRST ONLY EXAMINATION: CT ABDOMEN+PELVIS W CLINICAL HISTORY: Right sided abdomen pain TECHNIQUE: CT of the abdomen and pelvis was performed using standard technique, scanning from just above the dome of the diaphragm to the symphysis pubis following administration of intravenous contrast. CT Dose Reduction Employed: One or more of the following individualized dose reduction techniques were utilized for this examination: 1. Automated exposure control 2. Adjustment of the mA and/or kV according to patient size 3. Use of iterative reconstruction technique. COMPARISON: 05/02/2020 FINDINGS: Visualized heart and lungs unremarkable. Liver, gallbladder, pancreas, spleen, and adrenal glands unremarkable. Nonobstructive punctate bilateral renal calculi. No evidence of obstructive uropathy. Decompressed urinary bladder suboptimally evaluated. Uterus and adnexa within normal limits for patient's age. No bowel dilation or definite wall thickening. Normal appendix. No abdominal aortic or iliac artery aneurysm. No evidence of acute osseous abnormality. IMPRESSION: No evidence of acute abdominopelvic abnormality. Nonobstructive punctate bilateral nephrolithiasis. Electronically signed by: Irvin Esparza DO (11/10/2020 2:37 AM) [facility] Disclaimer Guerda Disclaimer This electronic medical record was generated, in whole or in part, using a voice recognition dictation system. Departure Departure: Impression: Primary Impression: Bilateral nephrolithiasis Additional Impression: Right upper quadrant pain Disposition: HOME / SELF CARE / HOMELESS Condition: IMPROVED Referrals: PCP,NO (PCP) Patient Instructions: Abdominal Pain, [id number], Kidney Stones, [id number] Additional Instructions: Please establish primary care provider and see your primary care provider in 3 to 5 days. You may need ultrasound right upper quadrant to rule out any gallbladder issues as you have history of gallbladder problems in the past. You have been diagnosed with kidney stone very very small size both kidney and they are not obstructing your urination. Please drink plenty of fluids. It has been a pleasure to serve you when you are in the hospital. Scripts Ondansetron Hcl (ZOFRAN) 4 Mg Tablet 1 TAB PO Q6HRS for nausea for 5 Days, #20 TAB Prov: JULIET PETERS MD 11/10/20 Naproxen (NAPROXEN) 500 Mg Tablet 1 TAB PO BID for pain for 20 Days, #40 TAB 0 Refills Prov: JULIET PETERS MD 11/10/20 Hydrocodone Bit/Acetaminophen (HYDROCODONE-APAP 5-325 ) 1 Each Tablet 1 TAB PO PRN Q6HRS PRN for PAIN for 5 Days, #20 TAB 0 Refills Prov: JULIET PETERS MD 11/10/20 Problem Qualifiers JULIET PETERS MD Nov 10, 2020 01:51
[2020-11-10] MEDS ORDERED: ONDANSETRON PF 4 MG/2 ML VIAL. IVP ONE (02:15)
[2020-11-10] MEDS ORDERED: IV NORMAL SALINE 1,000ML 1,000 ML IV SCH (02:15)
[2020-11-10] MEDS ORDERED: MORPHINE SULFATE 4 MG/ML DISP.SYRIN. IV/SQ PRN (02:15)
[2020-11-10] MEDS ORDERED: IOHEXOL 300 MG/ML 75 ML VIAL. IV ONE (02:15)
[2020-11-10] MEDS ORDERED: CONTRAST GIVEN. MC PRN (02:15)
[2020-11-10] MEDS ORDERED: 0.9 % SODIUM CHLORIDE 10 ML DISP.SYRIN. IV PRN (02:15)
[2020-11-10 02:22] LABS: BASO # 0.1 x10^3/uL (0.0-0.2); BASO % 1 % (0-3); EOS # 0.3 x10^3/uL (0.0-0.7); EOS % 3 % (0-3); HEMATOCRIT 33.9 % (36.0-47.0); HEMOGLOBIN 11.1 g/dL (12.0-15.5); LYMPH # 2.2 x10^3/uL (1.0-4.8); LYMPH % 27 % (24-48); MEAN CORPUSCULAR HEMOGLOBIN 25 pg (25-35); MEAN CORPUSCULAR HGB CONC 33 g/dL (31-37); MEAN CORPUSCULAR VOLUME 76 fL (79-100); MONO # 0.7 x10^3/uL (0.0-1.1); MONO % 9 % (0-9); NEUT % 61 % (31-73); PLATELET COUNT 487 x10^3/uL (140-400); RED BLOOD COUNT 4.44 x10^6/uL (3.50-5.40); RED CELL DISTRIBUTION WIDTH 16.3 % (11.5-14.5); WHITE BLOOD COUNT 8.3 x10^3/uL (4.0-11.0)
[2020-11-10 02:28] LABS: PREG TEST PT QUAL NEGATIVE (NEG)
[2020-11-10 02:30] LABS: BACTERIA,URINE 0 /HPF (0-FEW); BILIRUBIN,URINE NEG (NEG); CLARITY,URINE CLEAR; COLOR,URINE YELLOW; GLUCOSE,URINE NEG (NEG); NITRITE,URINE NEG (NEG); RBC,URINE 0 /HPF (0-2); SQUAMOUS EPITHELIAL CELL,UR MOD /LPF; WBC,URINE OCC /HPF (0-4)
[2020-11-10 02:31] LABS: ALBUMIN 3.4 g/dL (3.4-5.0); ALBUMIN/GLOBULIN RATIO 0.9 (1.0-1.7); CALCIUM 8.3 mg/dL (8.5-10.1); CREATININE 0.9 mg/dL (0.6-1.0); GFR 74.6; POTASSIUM 3.9 mmol/L (3.5-5.1); TOTAL BILIRUBIN 0.3 mg/dL (0.2-1.0); TOTAL PROTEIN 7.3 g/dL (6.4-8.2)
--- NOTE | 2020-11-10 02:40 | RAD ---
EXAMINATION: CT ABDOMEN+PELVIS W CLINICAL HISTORY: Right sided abdomen pain TECHNIQUE: CT of the abdomen and pelvis was performed using standard technique, scanning from just ab ove the dome of the diaphragm to the symphysis pubis following administration of intravenous contrast . CT Dose Reduction Employed: One or more of the following individualized dose reduction techniques wer e utilized for this examination: 1. Automated exposure control 2. Adjustment of the mA and/or kV ac cording to patient size 3. Use of iterative reconstruction technique. COMPARISON: 05/02/2020 FINDINGS: Visualized heart and lungs unremarkable. Liver, gallbladder, pancreas, spleen, and adrenal glands unremarkable. Nonobstructive punctate bilateral renal calculi. No evidence of obstructive uropathy. Decompressed urinary bladder suboptimally evaluated. Uterus and adnexa within normal limits for patie nt's age. No bowel dilation or definite wall thickening. Normal appendix. No abdominal aortic or iliac artery aneurysm. No evidence of acute osseous abnormality. IMPRESSION: No evidence of acute abdominopelvic abnormality. Nonobstructive punctate bilateral nephrolithiasis. Electronically signed by: Irvin Esparza DO (11/10/2020 2:37 AM) [facility]
[2020-11-10] MEDS ORDERED: HYDR-2155 PO (02:59)
[2020-11-10] MEDS ORDERED: NAPR-514 PO (02:59)
[2020-11-10] MEDS ORDERED: ONDA4TAB7 PO (03:12)
[2020-11-10] MEDS ORDERED: HYDROcodone/APAP 5/325MG 1 TAB TABLET PO ONE (03:15)
[2020-11-10 03:30] VITALS: BP 105/65
== END 2020-11-10 03:33 | disposition home or self-care (01) ==
LOC: ER 01:35
DX: N20.0 Calculus of kidney (principal)
CPT/HCPCS: 36415; 74177; 80053; 81001; 81025; 83690; 84703; 85025; 96361; 96374; 96375; 99285; J2270; J2405; J7030; Q9967